=== PATIENT | female | born 1960 | race Caucasian/White ===

== ENCOUNTER 2021-04-21 12:24 | Inpatient (IN) | payer BC ==
[2021-04-21] MEDS ORDERED: LIDOCAINE 1% INJ 10MG/ML (20 ML MDV) ONE (12:27)
[2021-04-21] MEDS ORDERED: LIDOCAINE 1% INJ 10MG/ML (20 ML MDV) SQ ONE (12:43)
[2021-04-21] MEDS ORDERED: SODIUM CHLORIDE 0.9% 1,000 ML IV ONE (12:44)
[2021-04-21] MEDS: MIDAZOLAM 2 MG/2 ML VIAL IV ONE ×2 (12:44→13:09)
[2021-04-21] MEDS ORDERED: fentaNYL (PF) 50 MCG/ML 2 ML AMP ONE (12:52)
[2021-04-21] MEDS ORDERED: TICAGRELOR 90 MG TAB ONE (12:53)
[2021-04-21] MEDS ORDERED: fentaNYL (PF) 50 MCG/ML 2 ML AMP IVP ONE (12:53)
[2021-04-21] MEDS ORDERED: TICAGRELOR 90 MG TAB PO ONE ×2 (12:56)
[2021-04-21] MEDS ORDERED: HEPARIN SODIUM 1,000 UN/ML (10ML VL) ONE (12:58)
[2021-04-21] MEDS: HEPARIN SODIUM 1,000 UN/ML (10ML VL) IVP ONE ×2 (12:59→13:22)
--- NOTE | 2021-04-21 12:59 | CONS ---
CONSULTATION CHIEF COMPLAINT: Acute DV-yqthhnh-wweipzidq [place]. This is a 60-year-old lady with history of fibromyalgia, Sjogren syndrome, hypothyroidism, who presented to [facility] complaining of chest pain. The initial EKG showed T-wave inversions in the inferior leads. She subsequently had more chest pain and a repeat EKG showed ST-segment elevation in inferior leads, due to which she was transferred over to [facility] for emergent cardiac catheterization. I evaluated the patient in the labor expediter. She appeared comfortable at rest; still had some chest discomfort. Her troponin was elevated at 0.1. Potassium is 3.7. BNP is 414. Covid test is negative. Hemoglobin is 11.3, platelet count is 286. Given her clinical presentation, I advised her to undergo cardiac catheterization. She understands risks, benefits. PAST MEDICAL HISTORY: Significant for Sjogren syndrome, hypothyroidism, fibromyalgia and hypertension. MEDICATIONS: Medications are as charted. FAMILY HISTORY: Significant for coronary artery disease in her sister. SOCIAL HISTORY: Negative for smoking, EtOH abuse or drug abuse. REVIEW OF SYSTEMS: HEENT is unremarkable. CARDIAC: As described above. RESPIRATORY: Negative. GI: Negative. GENITOURINARY: Negative. ALLERGY/IMMUNOLOGY: Negative. SKIN: Negative. MUSCULOSKELETAL: Significant for Sjogren syndrome. PSYCHOSOCIAL: Negative. ENDOCRINE: Negative. DERMATOLOGY: Negative. CONSTITUTIONAL: Negative. ONCOLOGICAL: Negative. WEB PORTAL DEVELOPER: Negative. PHYSICAL EXAMINATION: Comfortable at rest. Vital signs are stable. There is no jugular venous distention. Carotid upstroke is normal. There is no bruit. Chest exam reveals good air entry bilaterally. Heart exam reveals first and second heart sounds. No gallop. No murmur. No rub. Abdomen is soft, nontender. Examination of extremities did not reveal any edema. Peripheral pulses are felt. WEB PORTAL DEVELOPER exam did not reveal focal neurological deficits. ASSESSMENT: Acute inferior wall myocardial infarction. PLAN: Patient will undergo emergent cardiac catheterization with possible angioplasty. MMODL / IJN: [id number] /
[2021-04-21] MEDS ORDERED: NITROGLYCERIN 1000MCG/10ML SYRINGE INTRACORON ONE (13:16)
[2021-04-21] MEDS ORDERED: IOPAMIDOL-370 125ML BTL INJ ONE (13:19)
[2021-04-21] MEDS ORDERED: IOPAMIDOL-370 100ML BTL INJ ONE (13:48)
[2021-04-21] MEDS ORDERED: ZOLPIDEM 5 MG TAB PO PRN (13:53)
[2021-04-21] MEDS ORDERED: NITROGLYCERIN SL TABS 0.4 MG TAB SUBLINGUAL PRN (13:53)
[2021-04-21] MEDS ORDERED: RX INFO: IV CONTRAST WAS GIVEN 1 EACH MISC MISCELLANE PRN (13:53)
[2021-04-21] MEDS ORDERED: ATROPINE SULFATE 0.1 MG/ML 10ML SYRINGE IV PRN (13:53)
[2021-04-21] MEDS ORDERED: MAG HYDROX/AL HYDROX/SIMETH 30 ML CUP PO PRN (13:53)
[2021-04-21] MEDS ORDERED: SODIUM CHLORIDE 0.9% 1,000 ML IV SCH (14:00)
[2021-04-21 14:12] LABS: Glucose,Whole Blood 124 mg/dL (75-99)
[2021-04-21] MEDS: MORPHINE SULFATE 2 MG/ML SYRINGE IVP PRN ×3 (15:33→20:12)
[2021-04-21] MEDS ORDERED: Acetaminophen-Codeine 300-30mg TAB PO PRN (17:20)
[2021-04-21] MEDS ORDERED: OXcarbazepine 150 MG TAB PO SCH (17:30)
[2021-04-21] MEDS ORDERED: ONDANSETRON 4 MG/2 ML VIAL IVP PRN (18:06)
[2021-04-21] MEDS: SYMBICORT 160-4.5 MCG INHALER INHALATION SCH (19:24)
[2021-04-21] MEDS ORDERED: ACETAMINOPHEN PO PRN (19:52)
[2021-04-21] MEDS ORDERED: CODEINE 30 MG PO PRN (19:52)
[2021-04-21] MEDS ORDERED: CYCLOBENZAPRINE 5 MG TAB PO SCH (21:00)
[2021-04-21] MEDS: ACETAMINOPHEN PO PRN (21:47)
[2021-04-21] MEDS: ATORVASTATIN 80 MG TAB PO SCH (21:47)
[2021-04-21] MEDS: METOPROLOL TARTRATE 25 MG TAB PO SCH (21:47)
[2021-04-21] MEDS: CODEINE 30 MG PO PRN (21:47)
[2021-04-21] MEDS: ZOLPIDEM 10 MG PO PRN (21:47)
[2021-04-21] MEDS: TICAGRELOR 90 MG TAB PO SCH (21:47)
[2021-04-21] MEDS: CYCLOBENZAPRINE 5 MG PO SCH (21:50)
[2021-04-21] MEDS: TRAZODONE 100 MG PO SCH (21:50)
[2021-04-21] MEDS: TRILEPTAL 150 MG PO SCH (21:50)
[2021-04-21] MEDS: HEPARIN SODIUM,PORCINE/PF 5,000 UNIT/0.5 ML SYRINGE SQ SCH (23:46)
[2021-04-21 23:59] LABS: Cholesterol 142 mg/dL (0-200); Triglycerides <50.0 mg/dL (0.0-149.0)
--- NOTE | 2021-04-22 00:49 | P.HPIM ---
History of Present Illness H&P Date: 04/21/21 Chief Complaint: Chest Pain Patient is a 60-year-old female with a known history of fibromyalgia, Sjogren's syndrome, peripheral neuropathy nondiabetic, asthma, osteoarthritis, hypothyroidism initially presented to [facility] due to complaints of chest pain and shortness breath. Denied any radiation of the pain. No associated nausea vomiting or diaphoresis. Patient states that she has been having upper respiratory symptoms for the past 2 weeks and is being treated with antibiotics above clarithromycin for possible pneumonia and also continued on breathing treatments for asthma. Initially presented to [facility] where she had EKG showed ST elevation in the inferior leads. Patient was transferred to [facility] for emergent cardiac [facility] showed troponin 0.1, potassium 3.7 BNP 414, hemoglobin 11.3 and platelets 286 Covid test was negative. Patient underwent emergent cardiac catheterization. Troponin 0 0.645 and 2.340. Patient is currently being monitored in the ICU. Complains of generalized pain and requesting that pain medications and muscle relaxants. No complaints of chest pain or shortness of breath at this time. Past Medical History Past Medical History: Asthma, Fibromyalgia, Hypertension, Osteoarthritis (OA) Additional Past Medical History / Comment(s): Sjogren syndrome, neuropathy History of Any Multi-Drug Resistant Organisms: None Reported Past Surgical History: Appendectomy Past Anesthesia/Blood Transfusion Reactions: No Reported Reaction, Previous Problems w/ Anesthesia Smoking Status: Never smoker Medications and Allergies Home Medications Medication Instructions Recorded Confirmed Type Acetaminophen-Codeine 300-30mg 1 - 2 tab PO QID PRN 04/21/21 04/21/21 History [Tylenol w/codeine #3] Albuterol Sulfate [Albuterol 2 puff PO RT-QID PRN 04/21/21 04/21/21 History Sulfate Hfa] Budesonide/Formoterol Fumarate 2 puff INHALATION RT-BID 04/21/21 04/21/21 History [Symbicort 160-4.5 Mcg Inhaler] Clarithromycin 500 mg PO BID-W/MEALS 04/21/21 04/21/21 History Cyclobenzaprine [Flexeril] 5 mg PO BID 04/21/21 04/21/21 History Levalbuterol Tartrate 2 puff INHALATION RT-Q6H PRN 04/21/21 04/21/21 History [Levalbuterol Tartrate 45 MCG Hfa] Levothyroxine Sodium [Synthroid] 50 mcg PO DAILY 04/21/21 04/21/21 History OXcarbazepine [Trileptal] 150 mg PO TID-W/MEALS 04/21/21 04/21/21 History OXcarbazepine [Trileptal] 300 mg PO HS 04/21/21 04/21/21 History guanFACINE [Tenex] 3 mg PO HS 04/21/21 04/21/21 History traZODone HCL 200 mg PO HS 04/21/21 04/21/21 History Allergies Allergy/AdvReac Type Severity Reaction Status Date / Time No Known Allergies Allergy Verified 04/21/21 12:38 Physical Exam Vitals: Vital Signs Temp Pulse Resp Pulse Ox 04/21/21 17:00 97 13 96 04/21/21 16:30 88 17 95 04/21/21 16:15 84 13 96 04/21/21 16:00 98.2 F 84 10 L 96 04/21/21 15:45 89 25 H 93 L 04/21/21 15:30 91 13 95 04/21/21 15:15 93 16 96 04/21/21 15:00 88 12 96 04/21/21 14:45 89 12 96 04/21/21 14:30 89 13 93 L 04/21/21 14:24 98.2 F 04/21/21 14:15 82 5 L 95 04/21/21 14:07 86 23 Intake and Output 04/21/21 04/21/21 04/21/21 06:59 14:59 22:59 Intake Total 400 225 Output Total 900 Balance 400 -675 Intake: IV 400 225 Sodium Chloride 0.9% 1, 225 000 ml @ 75 mls/hr IV . [id number] [facility] Rx#:[id number] Output: Urine 900 Other: Weight 68 kg ABP, PAP, CO, CI - Last 8 Hours Arterial Blood Pressure 191/84 Arterial Blood Pressure 192/82 Arterial Blood Pressure 167/69 Arterial Blood Pressure 177/77 Arterial Blood Pressure 184/79 Arterial Blood Pressure 175/73 Arterial Blood Pressure 179/79 Arterial Blood Pressure 181/80 Arterial Blood Pressure 167/71 Arterial Blood Pressure 144/61 Arterial Blood Pressure 164/71 Results Labs: Abnormal Lab Results - Last 24 Hours (Table) 04/21/21 04/21/21 Range/Units 14:10 14:11 POC Glucose (mg/dL) 124 H (75-99) mg/dL Troponin I 0.645 H* (0.000-0.034) ng/mL Thrombosis Risk Factor Assmnt - DVT/VTE Prophylaxis DVT/VTE Prophylaxis: Pharmacologic Prophylaxis ordered - Choose All That Apply Any of the Below Risk Factors Present?: No Assessment and Plan Assessment: Acute ST elevated OR status post cardiac catheterization and stent placement. Acute inferior wall OR Fibromyalgia Sjogren's syndrome Chronic pain Asthma not in exacerbation Osteoarthritis Hypothyroidism GI and DVT prophylaxis with heparin subcu Plan: Patient is status post cardiac catheterization and stent placement due to acute ST elevated inferior OR. Continue with telemetry monitoring. Continue with aspirin, statins, Brilinta and metoprolol and lisinopril. Continue with breathing treatments as needed. Current home medications and follow-up closely. Cardiology is on board. Time with Patient: Greater than 30
[2021-04-22 04:16] LABS: Basophils % (A) 0 %; Eosinophils % (A) 0 %; HCT 31.9 % (34.0-46.0); HGB 10.3 gm/dL (11.4-16.0); Hypochromasia Slight; Lymphocytes # (A) 0.7 k/uL (1.0-4.8); Lymphocytes % (A) 6 %; MCH 26.1 pg (25.0-35.0); MCHC 32.2 g/dL (31.0-37.0); Mean Platelet Volume 8.8; Monocytes # (A) 0.8 k/uL (0-1.0); Monocytes % (A) 7 %; Neutrophils # (A) 9.8 k/uL (1.3-7.7); Neutrophils % (A) 83 %; Platelet Count 276 k/uL (150-450); RBC 3.94 m/uL (3.80-5.40); RDW 15.4 % (11.5-15.5); WBC 11.7 k/uL (3.8-10.6)
[2021-04-22 04:57] LABS: African American GFR (CKD) >90 (>60 ml/min/1.73 sqM); Anion Gap 11 mmol/L; Blood Urea Nitrogen 10 mg/dL (7-17); Calcium 9.2 mg/dL (8.4-10.2); Carbon Dioxide 21 mmol/L (22-30); Chloride 104 mmol/L (98-107); Glucose 156 mg/dL (74-99); Non-African American GFR(CKD) >90 (>60 ml/min/1.73 sqM); Potassium 3.8 mmol/L (3.5-5.1); Sodium 136 mmol/L (137-145)
[2021-04-22] MEDS ORDERED: Potassium Replacement Protocol 1 EACH MISC MISCELLANE PRN (05:11)
[2021-04-22] MEDS ORDERED: POTASSIUM CHLORIDE ER 20 MEQ TAB.ER PO SCH (06:00)
[2021-04-22] MEDS: LEVOTHYROXINE 50 MCG TAB PO SCH (06:39)
[2021-04-22] MEDS: TRILEPTAL 150 MG PO SCH ×4 (06:39→21:23)
[2021-04-22] MEDS: ACETAMINOPHEN PO PRN ×4 (07:09→21:49)
[2021-04-22] MEDS: CODEINE 30 MG PO PRN ×4 (07:09→21:49)
[2021-04-22] MEDS: SYMBICORT 160-4.5 MCG INHALER INHALATION SCH ×2 (07:31→20:27)
[2021-04-22] MEDS: METOPROLOL TARTRATE 25 MG TAB PO SCH ×2 (07:53→21:25)
[2021-04-22] MEDS: TICAGRELOR 90 MG TAB PO SCH ×2 (07:53→21:25)
[2021-04-22] MEDS: ASPIRIN 81 MG PO SCH (07:53)
[2021-04-22] MEDS: HEPARIN SODIUM,PORCINE/PF 5,000 UNIT/0.5 ML SYRINGE SQ SCH ×3 (07:54→23:36)
[2021-04-22] MEDS: CYCLOBENZAPRINE 5 MG PO SCH ×2 (07:54→21:23)
--- NOTE | 2021-04-22 10:00 | ECHOF ---
Referral Reason:fl MEASUREMENTS -------- HEIGHT: 154.9 cm WEIGHT: 67.6 kg BP: 170/73 RVIDd: 3.0 cm (< 3.3) IVSd: 1.3 cm (0.6 - 1.1) LVIDd: 4.4 cm (3.9 - 5.3) LVPWd: 0.8 cm (0.6 - 1.1) IVSs: 1.4 cm LVIDs: 2.9 cm LVPWs: 1.3 cm LAESV Index (A-L): 35.70 ml/m Ao Diam: 2.8 cm (2.0 - 3.7) AV Cusp: 1.6 cm (1.5 - 2.6) MV EXCURSION: 12.234 mm (> 18.000) MV EF SLOPE: 77 mm/s (70 - 150) EPSS: 0.3 cm MV E Marcelino: 1.11 m/s MV DecT: 146 ms MV A Marcelino: 1.61 m/s MV E/A Ratio: 0.69 RAP: 5.00 mmHg RVSP: 35.30 mmHg FINDINGS -------- Sinus rhythm. The left ventricular size is normal. There is mild concentric left ventricular hypertrophy. Overa ll left ventricular systolic function is low-normal with, an EF between 50 - 55 %. Basal inferosept al LV wall motion is hypokinetic. Mid inferoseptal LV wall motion is hypokinetic. The right ventricle is normal in size. LA is moderately dilated 34-39 ml/m2 The right atrial size is normal. 5.0mg of Lumason was utilized for enhancement of images Interatrial and interventricular septum intact. The aortic valve is trileaflet and appears structurally normal. There is no evidence of aortic regu rgitation. There is no evidence of aortic stenosis. Djtijifq-qj-ihtsji mitral regurgitation is present. Mild tricuspid regurgitation present. There is mild pulmonary hypertension. The right ventricular systolic pressure, as measured by Doppler, is 35.30mmHg. There is no pulmonic regurgitation present. The aortic root size is normal. IVC Not well visulized. There is no pericardial effusion. CONCLUSIONS -------- 1. The left ventricular size is normal. 2. There is mild concentric left ventricular hypertrophy. 3. Overall left ventricular systolic function is low-normal with, an EF between 50 - 55 %. 4. Basal inferoseptal LV wall motion is hypokinetic. 5. Mid inferoseptal LV wall motion is hypokinetic. 6. LA is moderately dilated 34-39 ml/m2 7. Uovhadoa-ss-snemrv mitral regurgitation is present. 8. Mild tricuspid regurgitation present. 9. There is mild pulmonary hypertension. 10. The right ventricular systolic pressure, as measured by Doppler, is 35.30mmHg. INSPECTOR PACKAGER: Adri Carrasco RDCS
--- NOTE | 2021-04-22 12:02 | P.PN ---
Subjective Progress Note Date: 04/22/21 This is a pleasant 60-year-old female patient with history of fibromyalgia, asthma, Sjgren syndrome, hypothyroidism. Initially presented to [facility] complaining of chest discomfort. Initial EKG showed T-wave inversions in the inferior leads. She subsequently had more chest pain and a r epeat EKG showed ST segment elevation in the inferior leads at which time she was transferred here to [facility] for emergent cardiac catheterization. She underwent cardiac catheterization which showed a tight lesion in the RCA and mild disease in the ostial LAD. She underwent stenting of the RCA. She is overall been feeling well this morning. She is resting comfortably in bed. She's had no further complaints of chest discomfort. Her vital signs are stable. She is maintaining sinus mechanism on the monitor with no ectopy according to nursing staff. Echocardiogram with Doppler study showed low normal LV systolic function with an ejection fraction between 50-55% with b yadira inferoseptal LV wall hypokinesis, mid inferoseptal LV wall hypokinesis, moderate to severe MR, mild TR and mild pulmonary hypertension. She's been started on aspirin 81 mg by mouth daily, Lipitor 80 mg by mouth daily at bedtime, lisinopril 2.5 mg by mouth twice a day, metoprolol tartrate 25 mg by mouth twice a day and Brilinta 90 mg by mouth twice a day. Objective - Vital Signs Vital signs: Vital Signs Temp 97.5 F L 04/22/21 08:00 Pulse 84 04/22/21 11:00 Resp 14 04/22/21 11:00 BP 131/65 04/22/21 11:00 Pulse Ox 94 L 04/22/21 10:00 Intake & Output 04/21/21 04/22/21 04/22/21 18:59 06:59 18:59 Intake Total 700 900 325 Output Total 900 1250 375 Balance -200 -350 -50 Weight 68 kg 67.9 kg Intake: IV 700 900 75 Sodium Chloride 0.9% 1, 300 900 75 000 ml @ 75 mls/hr IV . [id number] [facility] Rx#:[id number] Oral 250 Output: Urine 900 1250 375 Other: # Voids 1 ABP, PAP, CO, CI - Last Documented Arterial Blood Pressure 191/84 - Exam PHYSICAL EXAMINATION: HEENT: Head is atraumatic, normocephalic. Pupils equal, round. Neck is supple. There is no elevated jugular venous pressure. HEART EXAMINATION: Heart sounds regular, S1 and S2 normal. With a systolic murmur at the apex. CHEST EXAMINATION: Lungs are clear to auscultation. No chest wall tenderness is noted on palpation or with deep breathing. ABDOMEN: Soft, nontender. Bowel sounds are heard. No organomegaly noted. EXTREMITIES: 2+ peripheral pulses with no evidence of peripheral edema and no calf tenderness noted. Right groin puncture site soft with mild ecchymosis but no hematoma. NEUROLOGIC patient is awake, alert and oriented x3. . - Labs CBC & Chem 7: 04/22/21 03:49 04/22/21 03:49 Labs: Abnormal Lab Results - Last 24 Hours (Table) 04/21/21 04/21/21 04/21/21 Range/Units 14:10 14:11 17:21 WBC (3.8-10.6) k/uL Hgb (11.4-16.0) gm/dL Hct (34.0-46.0) % Neutrophils # (1.3-7.7) k/uL Lymphocytes # (1.0-4.8) k/uL Sodium (137-145) mmol/L Carbon Dioxide (22-30) mmol/L Creatinine (0.52-1.04) mg/dL Glucose (74-99) mg/dL POC Glucose (mg/dL) 124 H (75-99) mg/dL Troponin I 0.645 H* 2.340 H* (0.000-0.034) ng/mL 04/22/21 04/22/21 Range/Units 03:49 03:49 WBC 11.7 H (3.8-10.6) k/uL Hgb 10.3 L (11.4-16.0) gm/dL Hct 31.9 L (34.0-46.0) % Neutrophils # 9.8 H (1.3-7.7) k/uL Lymphocytes # 0.7 L (1.0-4.8) k/uL Sodium 136 L (137-145) mmol/L Carbon Dioxide 21 L (22-30) mmol/L Creatinine 0.50 L (0.52-1.04) mg/dL Glucose 156 H (74-99) mg/dL POC Glucose (mg/dL) (75-99) mg/dL Troponin I (0.000-0.034) ng/mL Assessment and Plan Assessment: #[address] elevation TN status post stenting of the RCA #2 Sjogren's syndrome #3 fibromyalgia #4 asthma Plan: From cardiology's perspective medications were reviewed and will continue the same. The patient may be transferred out of ICU. Increase patient's activity. We will continue to follow the patient provide further recommendations accordingly. The above dictated assessment and findings were discussed with signing physician. The impression and plan of care have been directed as dictated. Cryst feliz Baird, Nurse Practitioner, acting as scribe for signing physician.
[2021-04-22] MEDS ORDERED: GUANFACINE 1 MG PO SCH (21:00)
[2021-04-22] MEDS: TRAZODONE 100 MG PO SCH (21:22)
[2021-04-22] MEDS: ATORVASTATIN 80 MG TAB PO SCH (21:25)
[2021-04-22] MEDS: ZOLPIDEM 10 MG PO PRN (23:22)
[2021-04-23 04:43] VITALS: RESP 16
[2021-04-23] MEDS: TRILEPTAL 150 MG PO SCH ×2 (05:24→11:41)
[2021-04-23] MEDS: CODEINE 30 MG PO PRN ×2 (05:24→11:41)
[2021-04-23] MEDS: ACETAMINOPHEN PO PRN ×2 (05:24→11:41)
[2021-04-23] MEDS: LEVOTHYROXINE 50 MCG TAB PO SCH (05:24)
[2021-04-23] MEDS: SYMBICORT 160-4.5 MCG INHALER INHALATION SCH (07:46)
--- NOTE | 2021-04-23 08:12 | CC ---
CARDIAC CATHETERIZATION REPORT INDICATION: Acute inferior wall myocardial infarction. PROCEDURE NOTE: After obtaining informed consent, left heart catheterization and coronary angiogram were performed via the right femoral artery using standard Maryam catheters. Patient tolerated the procedure well without any obvious immediate complications. The patient received moderate conscious sedation. Total sedation time was 13 minutes. FINDINGS: HEMODYNAMICS: Left ventricular end-diastolic pressure is around 25-30 mm. There is no significant gradient across the aortic valve. LEFT VENTRICULOGRAM: Left ventriculogram was not performed. ANGIOGRAPHIC DATA: LEFT MAIN CORONARY ARTERY: Left main coronary artery appears calcified but is free of significant stenosis. It divides into ramus intermedius, circumflex coronary artery and LAD. LAD shows a moderate atherosclerotic plaque in its proximal portion. The left system is calcified, but both the ramus intermedius and circumflex coronary artery are free of significant disease. RIGHT CORONARY ARTERY: Right coronary artery appears heavily calcified. It is a large dominant vessel. There is a 99% focal stenosis in the very proximal part of the right coronary artery. CONCLUSIONS: Focal stenosis of 95% involving right coronary artery and a moderate atherosclerotic plaque in the proximal LAD. PLAN: She will undergo angioplasty with stent placement of the right coronary artery. MMODL / IJN: [id number] /
--- NOTE | 2021-04-23 08:24 | CC ---
CARDIAC CATHETERIZATION REPORT DATE OF SERVICE: 04/17/2021 Mrs. Head is a 60-year-old female with no prior documented history of coronary artery disease who presented to [facility] with symptoms of chest discomfort and evidence of ST-segment elevation inferiorly. She underwent cardiac catheterization by Dr. Mcleod and was found to have subtotally occluded proximal RCA. In view of that, recommendation was made regarding angioplasty and stenting. The procedure as well as its risks and complications were discussed with the patient, who was in full understanding and agreement. PROCEDURE: A 6-Thai FR4 guiding catheter was introduced into the system. After cannulating the right coronary ostium, a 0.014 balanced medium weight J-wire was advanced into the proximal RCA but could not cross the lesion. That wire was removed and a 0.014 Whisper J-wire with the help of a straight Super Cross microcatheter was successful in crossing the subtotal occlusion and positioned distally. Subsequently, the wire was exchanged through the microcatheter for a 0.014 balanced medium weight J-wire. After removing the microcatheter, a 2.5 x 12 mm Trek balloon was advanced, and two inflations at 8 atmospheres were done. Following that, the balloon was removed, and attempts to advance a 3.0 x 15 mm Xience Skypoint were unsuccessful. That balloon was removed and a 2.5 x 12 mm NC Trek balloon was advanced, and one inflation at 12 atmospheres was done. Following that the balloon was removed and the 3.0 x 15 mm Xience Skypoint stent was advanced, deployed and post-dilated at 16 atmospheres. Following that, a 3.5 x 8 mm NC Trek balloon was advanced and multiple inflations in the stented segment to a maximum of 12 atmospheres were done. After the last inflation, after appropriate wait, the balloon and the guidewire were withdrawn back into the guiding catheter. Images were obtained and repeated. Those images revealed stable successful stenting. At that point, the guiding catheter, the balloon and the guidewire were removed. The sheath was sutured in place. The patient was returned to her room in stable condition. Of note, the patient had chest discomfort and EKG changes with the inflation that resolved at the end of the procedure. She received 6000 units of intravenous heparin. Her ACT was followed and she received an oral loading dose of Brilinta. RESULTS: Successful stenting of the proximal right coronary artery with reduction of stenosis from 99% in a heavily calcified segment to 0%. RECOMMENDATIONS: Patient will be continued on aspirin, Brilinta, beta whitley, MINNIE inhibitor and statin. The importance of dual antiplatelet treatment was discussed with the patient, who is in full understanding and agreement. Duration of sedation was 49 minutes. JAMES / CARMELAN: [id number] /
--- NOTE | 2021-04-23 08:24 | LTR ---
April 21, 2021 To: Dr. Mancuso Re: James Head (58) Dear Dr. Machuca, James Head presented to [facility] as a transfer from [facility] with acute inferior wall myocardial infarction and underwent emergent cardiac catheterization by me that revealed a focal tight stenosis in the proximal right coronary artery. She will undergo angioplasty with stent placement of the same. Thank you for giving the privilege of participating in the care of this pleasant lady. I will keep you informed of her progress in the hospital and she will follow up with you when she is discharged home. Sincerely, Jose Miguel Mcleod M.D. JAMES / CHRIS: [id number] /
--- NOTE | 2021-04-23 08:28 | LTR ---
April 21, 2021 To: Dr. Warren Re: James Head (58) Dear Dr. Warren, I had the pleasure of performing coronary angioplasty and stenting on Mrs. Head at [facility] on April 21, and a full copy of the procedure note will be forwarded to you. In brief, she was found to have a subtotally occluded proximal right coronary artery and underwent successful stenting of that vessel. I am hopeful that this procedure will stabilize her status. Thank you again for allowing me to participate in this patient's care. Please feel free to call with any questions. Sincerely, Gerry Em M.D. JAMES / CHRIS: [id number] /
[2021-04-23] MEDS: TICAGRELOR 90 MG TAB PO SCH (09:48)
[2021-04-23] MEDS: ASPIRIN 81 MG PO SCH (09:48)
[2021-04-23] MEDS: METOPROLOL TARTRATE 25 MG TAB PO SCH (09:48)
[2021-04-23] MEDS: HEPARIN SODIUM,PORCINE/PF 5,000 UNIT/0.5 ML SYRINGE SQ SCH (09:48)
[2021-04-23] MEDS: CYCLOBENZAPRINE 5 MG PO SCH (09:49)
[2021-04-23 09:56] VITALS: BP 118/72; PULSE 84; TEMP 98.3
--- NOTE | 2021-04-23 11:12 | P.DS ---
Providers Date of admission: 04/21/21 12:48 Expected date of discharge: 04/23/21 Attending physician: Neftaly Ness Consults: 04/21/21 13:54 Consult Physician Routine Consulting Provider: [facility] Consult Reason/Comments: Post Interventional patient Do you want consulting provider notified?: Already Contacted Primary care physician: Brigette Warren MD Hospital Course: This is a 60-year-old female with past medical history significant for underlying asthma, fibromyalgia, and Sjogren syndrome who presented to the emergency room with chest pain and was evaluated at [facility] 12-lead EKG showing evidence of ST segment elevation in the anterior leads. Patient was transferred to our hospital and underwent left heart catheterization with successful stent placement to RCA. Patient was started on optimal medical management with dual antiplatelet therapy. Echocardiogram showed low normal left ventricular ejection fraction. Patient was cleared by cardiology for discharge home. She was seen and evaluated by me on the day of discharge. She denies any chest pain. She will follow-up with cardiology and her PCP in the office as directed. Patient Condition at Discharge: Serious Plan - Discharge Summary Discharge Rx Participant: Yes New Discharge Prescriptions: New Aspirin 81 mg PO DAILY chew Atorvastatin [Lipitor] 80 mg PO HS 30 Days #30 tab Metoprolol Tartrate [Lopressor] 25 mg PO BID 30 Days #60 tab Nitroglycerin Sl Tabs [Nitrostat] 0.4 mg SUBLINGUAL Q5M PRN 30 Days #30 tab PRN Reason: Chest Pain Ticagrelor [Brilinta] 90 mg PO BID 30 Days #60 tab lisinopriL [Zestril] 2.5 mg PO BID 30 Days #60 tab Continue OXcarbazepine [Trileptal] 300 mg PO HS OXcarbazepine [Trileptal] 150 mg PO TID-W/MEALS traZODone HCL 200 mg PO HS Albuterol Sulfate [Albuterol Sulfate Hfa] 2 puff PO RT-QID PRN PRN Reason: Shortness Of Breath guanFACINE [Tenex] 3 mg PO HS Cyclobenzaprine [Flexeril] 5 mg PO BID Acetaminophen-Codeine 300-30mg [Tylenol w/codeine #3] 1 - 2 tab PO QID PRN PRN Reason: Pain Levothyroxine Sodium [Synthroid] 50 mcg PO DAILY Levalbuterol Tartrate [Levalbuterol Tartrate 45 MCG Hfa] 2 puff INHALATION RT-Q6H PRN PRN Reason: Shortness Of Breath Budesonide/Formoterol Fumarate [Symbicort 160-4.5 Mcg Inhaler] 2 puff INHALATION RT-BID Discontinued Clarithromycin 500 mg PO BID-W/MEALS Discharge Medication List Acetaminophen-Codeine 300-30mg [Tylenol w/codeine #3] 1 - 2 tab PO QID PRN 04/21/21 [History] Albuterol Sulfate [Albuterol Sulfate Hfa] 2 puff PO RT-QID PRN 04/21/21 [History ] Budesonide/Formoterol Fumarate [Symbicort 160-4.5 Mcg Inhaler] 2 puff INHALATION RT-BID 04/21/21 [History] Cyclobenzaprine [Flexeril] 5 mg PO BID 04/21/21 [History] Levalbuterol Tartrate [Levalbuterol Tartrate 45 MCG Hfa] 2 puff INHALATION RT- Q6H PRN 04/21/21 [History] Levothyroxine Sodium [Synthroid] 50 mcg PO DAILY 04/21/21 [History] OXcarbazepine [Trileptal] 150 mg PO TID-W/MEALS 04/21/21 [History] OXcarbazepine [Trileptal] 300 mg PO HS 04/21/21 [History] guanFACINE [Tenex] 3 mg PO HS 04/21/21 [History] traZODone HCL 200 mg PO HS 04/21/21 [History] Aspirin 81 mg PO DAILY chew 04/23/21 [Rx] Atorvastatin [Lipitor] 80 mg PO HS 30 Days #30 tab 04/23/21 [Rx] Metoprolol Tartrate [Lopressor] 25 mg PO BID 30 Days #60 tab 04/23/21 [Rx] Nitroglycerin Sl Tabs [Nitrostat] 0.4 mg SUBLINGUAL Q5M PRN 30 Days #30 tab 04/23/21 [Rx] Ticagrelor [Brilinta] 90 mg PO BID 30 Days #60 tab 04/23/21 [Rx] lisinopriL [Zestril] 2.5 mg PO BID 30 Days #60 tab 08/30/21 [Rx] Follow up Appointment(s)/Referral(s): Brigette Warren MD [Primary Care Provider] - 1 Week Jose Miguel Mcleod MD [STAFF PHYSICIAN] - 1 Week Patient Instructions/Handouts: Left Heart Catheterization (DC), Heart Healthy Diet (GEN) Discharge Disposition: HOME SELF-CARE
[2021-04-23 11:53] VITALS: BMI 27.3
--- NOTE | 2021-04-23 11:54 | P.PN ---
Subjective This is a pleasant 60-year-old female patient with history of fibromyalgia, asthma, Sjgren syndrome, hypothyroidism. Initially presented to [facility] complaining of chest discomfort. Initial EKG showed T-wave inversions in the inferior leads. She subsequently had more chest pain and a repeat EKG showed ST segment elevation in the inferior leads at which time she was transferred here to [facility] for emergent cardiac catheterization. 04/21/21 She underwent cardiac catheterization by Dr. Mcleod which showed a tight lesion in the RCA and mild disease in the ostial LAD. She underwent stenting of the RCA by Dr. Em. Echocardiogram with Doppler study showed low normal LV systolic function with an ejection fraction between 50-55% with basal inferoseptal LV wall hypokinesis, mid inferoseptal LV wall hypo kinesis, moderate to severe MR, mild TR and mild pulmonary hypertension. 04/23/21 Patient seen and examined at bedside this morning. Up in the chair. No complaints except feeling slightly sore at the right groin cath site. She is overall been feeling well this morning. She denies any further complaints of chest discomfort. Denies shortness of breath, lightheadedness dizziness, or palitations. Her vital signs are stable. She is maintaining sinus mechanism on the monitor. She is currently maintained on aspirin 81 mg by mouth daily, Lipitor 80 mg by mouth daily at bedtime, lisinopril 2.5 mg by mouth twice a day, metoprolol tartrate 25 mg by mouth twice a day and Brilinta 90 mg by mouth twice a day. GENERAL: Well-appearing, well-nourished and in no acute distress. NECK: Supple without JVD or thyromegaly. LUNGS: Breath sounds clear to auscultation bilaterally. Respiration equal and unlabored. No wheezes, rales or rhonchi. HEART: Regular rate and rhythm without murmurs, rubs or gallops. S1 and S2 heard. EXTREMITIES: Normal range of motion, no edema. No clubbing or cyanosis. Peripheral pulses intact. SKIN: Right groin cath site clean dry, intact, small bruising noted no hematoma ASSESSMENT STEMI s/p PCI to RCA History of fibromyalgia History of asthma History of Sjogren syndrome History of hypothyroidism PLAN Continue dual antiplatelet therapy with aspirin and Brilinta. Case management has been consulted in regards to Brilinta cost. Continue statin, beta whitley and ACEI From a cardiology perspective, patient is stable to be discharged home. Follow up with Dr. Mcleod in 1 week. Nurse Practitioner note has been reviewed, I agree with a documented findings and plan of care. Patient was seen and examined. Objective - Vital Signs Vital signs: Vital Signs Temp 98 F 04/23/21 04:00 Pulse 78 04/23/21 04:00 Resp 16 04/23/21 04:00 BP 125/63 04/23/21 04:00 Pulse Ox 96 04/23/21 07:46 Intake & Output 04/22/21 04/23/21 04/23/21 18:59 06:59 18:59 Intake Total 565 Output Total 775 1200 Balance -210 -1200 Weight 65.8 kg Intake: IV 75 Sodium Chloride 0.9% 1, 75 000 ml @ 75 mls/hr IV . [id number] Rx#:[id number] Oral 490 Output: Urine 775 1200 Other: Voiding Method Toilet # Voids 2 1 ABP, PAP, CO, CI - Last Documented Arterial Blood Pressure 191/84 - Labs CBC & Chem 7: 04/22/21 03:49 04/22/21 03:49
== END 2021-04-23 16:31 | disposition home or self-care (01) | DRG 247 ==
LOC: EC 12:24 → 3SCARD 12:25 → 2SICU 13:24 → 3SCARD 04-22 15:32
PROVIDERS: ADMIT Internal Medicine; ATTEND Internal Medicine
PROC: 4A023N7 Measurement of Cardiac Sampling and Pressure, Left Heart, Percutaneous Approach (ICD-10-PCS; principal; 2021-04-21 12:26)
PROC: 027034Z Dilation of Coronary Artery, One Artery with Drug-eluting Intraluminal Device, Percutaneous Approach (ICD-10-PCS; principal; 2021-04-21 12:26)
PROC: B2111ZZ Fluoroscopy of Multiple Coronary Arteries using Low Osmolar Contrast (ICD-10-PCS; principal; 2021-04-21 12:26)
DX: I21.19 ST elevation (STEMI) myocardial infarction involving other coronary artery of inferior wall (principal); E03.9 Hypothyroidism, unspecified; G89.29 Other chronic pain; I10 Essential (primary) hypertension; I25.10 Atherosclerotic heart disease of native coronary artery without angina pectoris; Z20.822 Contact with and (suspected) exposure to COVID-19; M35.00 Sjogren syndrome, unspecified; M19.90 Unspecified osteoarthritis, unspecified site; J45.909 Unspecified asthma, uncomplicated; M79.7 Fibromyalgia; I27.22 Pulmonary hypertension due to left heart disease; Z79.82 Long term (current) use of aspirin; I25.2 Old myocardial infarction; Z79.890 Hormone replacement therapy; Z79.899 Other long term (current) drug therapy; Z82.49 Family history of ischemic heart disease and other diseases of the circulatory system; Z79.51 Long term (current) use of inhaled steroids; Z79.02 Long term (current) use of antithrombotics/antiplatelets
CPT/HCPCS: 80048; 80061; 84484; 85025; 93306; 93458; 94760; 99285

== ENCOUNTER → 2022-01-25 | Outpatient (CLI) | payer BC ==
--- NOTE | 2022-01-25 18:03 | CA ---
Transthoracic Echo Report Name: James Head Age: 61 Gender: F : 1960 Exam Date: 01/25/2022 08:49 Exam Location: [facility] Ht (in): 61 Wt (lb): 150 Ordering Physician: Brigette Warren MD Attending/Referring Phys: Jose Miguel Mcleod MD ([id number]) Tool Storage Attendant Yahaira Worley MARE Procedure CPT: Indications: R06.01 orthopenia Cardiac Hx: Technical Quality: Good Contrast 1: Definity Total Dose (mL): Contrast 2: N/A Total Dose (mL): MEASUREMENTS (Male / Female) Normal Values 2D ECHO LV Diastolic Diameter PLAX 3.4 cm 4.2 - 5.9 / 3.9 - 5.3 cm LV Systolic Diameter PLAX 2.6 cm IVS Diastolic Thickness 1.0 cm 0.6 - 1.0 / 0.6 - 0.9 cm LVPW Diastolic Thickness 1.1 cm 0.6 - 1.0 / 0.6 - 0.9 cm LV Relative Wall Thickness 0.6 RV Internal Dim ED PLAX 2.4 cm LA Volume 61.3 cm??? 18 - 58 / 22 - 52 cm??? M-MODE Aortic Root Diameter MM 2.9 cm LA Systolic Diameter MM 3.7 cm LA Ao Ratio MM 1.3 MV E Point Septal Separation 0.2 cm AV Cusp Separation MM 1.7 cm DOPPLER MV Area PHT 2.7 cm??? Mitral E Point Velocity 63.2 cm/s Mitral A Point Velocity 114.4 cm/s Mitral E to A Ratio 0.6 MV Deceleration Time 281.9 ms TR Peak Velocity 233.9 cm/s TR Peak Gradient 21.9 mmHg Right Ventricular Systolic Press 25.4 mmHg FINDINGS Left Ventricle Normal Left ventricular size, wall thickness, systolic function with no obvious regional wall motion abnormalities. Right Ventricle Normal right ventricular size and function. Right ventricular systolic pressure within normal limits. Right Atrium Normal right atrial size. Left Atrium Mildly increased left atrial volume. Mitral Valve Mitral valve thickened. Mild mitral regurgitation. Aortic Valve Trileaflet aortic valve. Tricuspid Valve Structurally normal tricuspid valve. Mild tricuspid regurgitation. Pulmonic Valve Structurally normal pulmonic valve. Pericardium Normal pericardium. Aorta Normal size aortic root and proximal ascending aorta. CONCLUSIONS Normal left ventricular ejection fraction 55-60% Asymmetric septal hypertrophy Mild mitral regurgitation Mild tricuspid regurgitation No pericardial effusion Previewed by: Dr. Holden James DO (Electronically Signed) Final Date: 25 January 2022 18:02
== END | disposition home or self-care (01) ==
LOC: RADECHMAIN 08:08
PROVIDERS: ATTEND Family Medicine
DX: I34.0 Nonrheumatic mitral (valve) insufficiency (principal); I07.1 Rheumatic tricuspid insufficiency; R06.01 Orthopnea
CPT/HCPCS: 93306

== ENCOUNTER → 2023-06-05 | Outpatient (CLI) | payer BC ==
[2023-06-06 02:09] LABS: HCT 38.5 % (37.2-46.3); HGB 12.2 d/dL (12.0-15.0); MCH 29.7 pg (27.0-32.0); MCHC 31.7 d/dL (32.0-37.0); MCV 93.7 FL (80.0-97.0); Mean Platelet Volume 10.9 FL (9.5-12.2); NRBC Per 100 WBC 0 X 10*3/uL (0.00-0.01); Platelet Count 277 X 10*3/uL (140-440); RBC 4.11 X 10*6/uL (4.10-5.20); RDW 15.5 % (11.5-14.5)
[2023-06-06 02:25] LABS: Blood Urea Nitrogen 21.4 mg/dL (9.0-27.0); Carbon Dioxide 27.1 mmol/L (21.6-31.8); Chloride 103 mmol/L (96-109); Potassium 4.9 mmol/L (3.5-5.5); Sodium 141 mmol/L (135-145)
== END | disposition home or self-care (01) ==
LOC: LABPAT 15:00
PROVIDERS: ATTEND Internal Medicine Cardiovascular Disease
DX: Z01.812 Encounter for preprocedural laboratory examination (principal); R94.39 Abnormal result of other cardiovascular function study
CPT/HCPCS: 80051; 82565; 84520; 85027

== ENCOUNTER 2023-06-13 06:25 | Day surgery (SDC) | payer BC ==
[2023-06-11 10:28] VITALS: BMI 29.0
[~2023-06-13 06:25] MED LIST: ALPRAZolam 0.25 MG TAB PO PRN; ALPRAZolam 0.5 MG TAB PO PRN; ASPIRIN 325 MG TAB PO STA; ATORVASTATIN 80 MG TAB PO STA; HEPARIN SODIUM,PORCINE (1 ML) 2,500 UNIT in SODIUM CHLORIDE 0.9% 250 ML IRRIGATION PRN; HEPARIN SODIUM,PORCINE 10,000 UNIT in SODIUM CHLORIDE 0.9% 1,000 ML IRRIGATION PRN; NITROGLYCERIN SL TABS 0.4 MG TAB SUBLINGUAL PRN; SODIUM CHLORIDE 0.9% 1,000 ML in EMPTY BAG 1 BAG IV SCH
[2023-06-13] MEDS ORDERED: SODIUM CHLORIDE 0.9% 1,000 ML IV ONE (06:31)
[2023-06-13 07:07] VITALS: RESP 16; TEMP 98
[2023-06-13] MEDS ORDERED: fentaNYL (PF) 50 MCG/ML 2 ML AMP ONE (07:27)
[2023-06-13] MEDS ORDERED: HEPARIN SODIUM 1,000 UN/ML (10ML VL) ONE (07:27)
[2023-06-13] MEDS: fentaNYL (PF) 50 MCG/ML 2 ML AMP IVP ONE ×4 (07:33→09:57)
[2023-06-13] MEDS: MIDAZOLAM 2 MG/2 ML VIAL IVP ONE ×5 (07:33→08:32)
[2023-06-13] MEDS ORDERED: LIDOCAINE 1% INJ 10MG/ML (20 ML MDV) SQ ONE (07:34)
[2023-06-13] MEDS ORDERED: VERAPAMIL SYRINGE (5 MG/10 ML) INTRAARTER ONE (07:35)
[2023-06-13] MEDS: HEPARIN SODIUM 1,000 UN/ML (10ML VL) IV ONE ×4 (07:41→08:50)
[2023-06-13] MEDS: IOPAMIDOL-370 200ML BTL INJ ONE ×2 (08:08→09:05)
[2023-06-13] MEDS ORDERED: MAG HYDROX/AL HYDROX/SIMETH 30 ML CUP PO PRN (09:22)
[2023-06-13] MEDS ORDERED: RX INFO: IV CONTRAST WAS GIVEN 1 EACH MISC MISCELLANE PRN (09:22)
[2023-06-13] MEDS ORDERED: NITROGLYCERIN SL TABS 0.4 MG TAB SUBLINGUAL PRN (09:22)
[2023-06-13] MEDS ORDERED: ZOLPIDEM 5 MG TAB PO PRN (09:22)
[2023-06-13] MEDS ORDERED: ATROPINE SULFATE 0.1 MG/ML 10ML SYRINGE IV PRN (09:22)
[2023-06-13] MEDS ORDERED: fentaNYL (PF) 50 MCG/ML 2 ML AMP IVP PRN (09:24)
[2023-06-13] MEDS ORDERED: SODIUM CHLORIDE 0.9% 1,000 ML in EMPTY BAG 1 BAG IV SCH (09:30)
--- NOTE | 2023-06-13 09:33 | P.CARDCATH ---
Date of Procedure: 06/13/23 Description of Procedure: PERCUTANEOUS TRANSLUMINAL CORONARY ANGIOPLASTY CLINICAL INFORMATION: The patient is a 63-year-old female with known history of hypertension, hyperlipidemia, history of CAD status post stenting in 2020 who has been complaining of progressive chest discomfort and underwent cardiac catheterization by Dr. Mcleod and was found to have severe obstructive disease involving the mid RCA. Recommendations were made regarding angioplasty and stenting. The procedure as well as the risks and the complications were discussed with the patient who was in full understanding and agreement. PROCEDURE: A 6 Chadian FR4 guiding catheter was introduced into the system. After cannulating the right coronary ostium, a 0.014 BMW she was advanced across the lesion and positioned distally. Attempt to advance a 2.5 x 12 mm NC Treck were unsuccessful. The balloon was removed and a 6-Chadian guide liner was introduced subsequently a 2.5 x 12 mm Treck was advanced into inflation at 8 sumaya were done, 2.5 x 12 mm NC balloon was advanced into inflation at 10 sumaya were done. Subsequently a 3.0 x 23 mm Xience [place] point stent was deployed at 16 sumaya. After removing the balloon a [employer] [place] eye IVUS catheter was introduced and imaging were obtained. Subsequently a 3.5 x 12 mm NC Treck balloon was advanced and multiple inflation at maximum of 12 sumaya were done after removing the balloon 3.5 x 18 mm Xience [place] point was deployed proximal to the stent deployed at 16 sumaya. After the last inflation, after appropriate wait, the balloon and the guidewire were withdrawn back into the guiding catheter. Images were obtained and repeated. Those images reveal stable successful stenting. At that point, the guiding catheter, the balloon, and guidewire were removed. The sheath was removed. Hemostasis was obtained with and deployment of a TR band. There were no immediate complications. The patient was returned to the room in stable condition. Of note, the patient received 8500 units of heparin and continued on Brilinta. Her ACT was followed. There was no immediate complications. She had chest discomfort and EKG changes with the inflations that resolved at the end of the procedure RESULTS: Successful stenting of the long segment of a calcified mid RCA with reduction of stenosis from 99 % to < 5 % with intravascular ultrasound imaging. RECOMMENDATIONS: The patient will continue on aspirin and Brilinta for 6 months in addition to aggressive coronary risks modification and maintaining her LDL less than 70 mg/dL The findings and recommendations were discussed with the patient and the family, they are in full understanding and agreement. Duration of sedation: 54 minutes
[2023-06-13] MEDS ORDERED: Acetaminophen-Codeine 300-30mg TAB PO PRN (10:28)
[2023-06-13] MEDS ORDERED: OXcarbazepine 150 MG TAB PO SCH ×2 (12:30→21:00)
--- NOTE | 2023-06-13 12:34 | CC ---
CARDIAC CATHETERIZATION REPORT INDICATIONS: Unstable angina. PROCEDURE NOTE: After obtaining informed consent, left heart catheterization and coronary angiogram were performed via the right radial artery using standard Maryam catheters. The patient tolerated the procedure well without any obvious immediate complications. The patient received moderate conscious sedation. Total sedation time was 18 minutes. A TR band will be used for hemostasis at the end of the procedure. The patient received 5 mg of verapamil and heparin per protocol. Right radial artery access was obtained using Seldinger technique. A 6-Cameroonian sheath was placed. Catheters and wires were floated into the ascending aorta under fluoroscopic guidance. FINDINGS: 1. Hemodynamics: Left ventricular end-diastolic pressure is 20 mm. There is no significant gradient across the aortic valve. 2. Left Ventriculogram: Not performed. 3. Angiographic Data: a.Right coronary artery is a large dominant vessel that was previously stented in the proximal portion, the stent appears patent. There is a long area of 80% to 90% stenosis involving mid RCA. Left main coronary artery is a short vessel and is free of stenosis, divides into left anterior descending coronary artery and circumflex coronary artery. Circumflex coronary artery shows mild nonobstructive plaque. There is a ramus intermedius that shows a 40% stenosis. There is an atherosclerotic plaque involving the proximal and mid LAD. CONCLUSIONS: Three-vessel coronary artery disease as described above with a focal significant stenotic lesion involving mid RCA. PLAN: The patient will undergo angioplasty with stent placement of the right coronary artery and angiogram was reviewed by Dr. Em, the on-call fiscal assistant. MMODL / IJN: [id number] /
[2023-06-13 13:27] VITALS: BP 126/72; PULSE 78
[2023-06-13] MEDS ORDERED: CYCLOBENZAPRINE 5 MG TAB PO SCH (21:00)
[2023-06-13] MEDS ORDERED: traZODone HCL 100 MG TAB PO SCH (21:00)
[2023-06-13] MEDS ORDERED: ATORVASTATIN 80 MG TAB PO SCH (21:00)
[2023-06-13] MEDS ORDERED: TICAGRELOR 90 MG TAB PO SCH (21:00)
[2023-06-13] MEDS ORDERED: METOPROLOL TARTRATE 25 MG TAB PO SCH (21:00)
[2023-06-14] MEDS ORDERED: LEVOTHYROXINE 50 MCG TAB PO SCH (06:30)
[2023-06-14] MEDS ORDERED: ASPIRIN 81 MG PO SCH (09:00)
[2023-06-14] MEDS ORDERED: ISOSORBIDE MONONITRATE ER 30 MG TAB.ER.24H PO SCH (09:00)
== END 2023-06-13 13:10 | disposition home or self-care (01) ==
LOC: CATHCVL 06:25
PROVIDERS: ATTEND Internal Medicine Cardiovascular Disease
DX: I25.10 Atherosclerotic heart disease of native coronary artery without angina pectoris (principal); I10 Essential (primary) hypertension; E78.5 Hyperlipidemia, unspecified; F17.210 Nicotine dependence, cigarettes, uncomplicated; Z79.899 Other long term (current) drug therapy
CPT/HCPCS: 92978; 93458; C9600; C1769 ×2; C1887 ×2; C1894; C1725 ×3; C1753; C1874 ×2; J2250; J2001; J3010; J1644; Q9967